=== PATIENT | male | born 1985 | race Two or more races ===

== ENCOUNTER 2017-01-21 17:45 | Emergency (ER) | payer BC ==
[~2017-01-21] VITALS: Ht 167.6 cm; Wt 79.4 kg
[2017-01-21] MEDS ORDERED: Bacitracin Oint UD TOPIC ONE (18:00)
[2017-01-21] MEDS ORDERED: Lidocaine 1% Plain 30 ml INJ ONE (18:00)
[2017-01-21] MEDS ORDERED: TdaP Vaccine 0.5ml Syr IM ONE (18:00)
[2017-01-21 18:45] VITALS: BP 138/87
[2017-01-21] MEDS ORDERED: IBUPROFEN600 MG ORAL (19:11)
[2017-01-21] MEDS ORDERED: BACITRACIN15 GM TOPIC (19:11)
[2017-01-21 19:18] VITALS: BP 138/87
--- NOTE | 2017-01-21 21:02 | Emergency Room Report ---
History of Present Illness General Chief Complaint: Laceration Source: Patient Present Illness [facility] The patient is a 31-year-old male presenting for laceration of the right hand. The patient states that he was at home fixing a pipe when his hand slipped and the end of the pipe cut his hand. He noticed immediate pain and bleeding. Pain is described as an 8/10 dull ache and does not radiate. It is worse with touch and hand movements. He denies numbness or tingling. He denies previous injury to this area. He denies any other symptoms Allergies: Coded Allergies: No Known Allergies (Unverified , 01/21/17) Patient History Past Medical History: see triage record Pertinent Family History: none Reviewed Nursing Documentation: PMH: Agreed, PSxH: Agreed Nursing Documentation-PMH Past Medical History: No Stated History Review of Systems All Other Systems: negative except mentioned in HPI Physical Exam Vital Signs Date Time Temp Pulse Resp B/P Pulse Ox O2 Delivery O2 Flow Rate FiO2 01/21/17 17:49 98.1 81 20 143/84 98 Room Air Sp02 EP Interpretation: reviewed, normal General Appearance: no apparent distress, alert, GCS 15, non-toxic Head: normocephalic, atraumatic Eyes: bilateral eye PERRL, bilateral eye normal inspection ENT: hearing grossly normal, normal pharynx, no angioedema, normal voice Musculoskeletal: back normal, gait/station normal, normal range of motion, tender - TTP over the R mid palmar surface over the laceration Neurologic: alert, oriented x3, responsive, motor strength/tone normal, sensory intact, normal gait, speech normal Psychiatric: judgement/insight normal, memory normal, mood/affect normal, no suicidal/homicidal ideation Skin: laceration - 4cm laceration to the palmar surface for proximal 3rd digit and 5cm laceration proximal to the MCPJ Lymphatic: no adenopathy Procedures Laceration/Wound Repair Laceration/Wound Repair : Consent: Verbal Wound Location: upper extremity Wound's Depth, Shape: superficial, irregular Wound Length (cm): 9 - total of 2 lacerations Wound Explored: clean Irrigated w/ Saline (ccs): 200 Betadine Prep?: Yes Anesthesia: 1% Lidocaine Volume Anesthetic (ccs): 9 Wound Debrided: minimal Wound Repaired With: sutures Suture Size/Type: 4:0, proline Number of Sutures: 12 Layer Closure?: No Sterile Dressing Applied?: Yes Splint Applied?: No Sling Applied?: No Patient Tolerated: Well Complications: None Medical Decision Making PA Attestation Dr. Galindo is my supervising physician. Patient management was discussed with my supervising physician Diagnostic Impression: Primary Impression: Hand laceration Qualified Codes: S61.411A - Laceration without foreign body of right hand, initial encounter ER Course The patient is a 31-year-old male presenting for laceration of the right hand. Ddx considered include but not limited to fracture, tendon/ligament injury, avulsion, nerve damage PE: vitals WNL Right hand: Full AROM. No active bleeding. There is a 5 cm irregular laceration to the palmar surface proximal to the MCP joint. There is a 4 cm laceration to the palmar surface of the third digit proximal to the PIP joint. Wound is irrigated with NS and betadine The wound was irrigated with normal saline and cleaned with betadine. A 27g needle was used to administer 9mL of lidocaine w.o epi for local anaesthesia. 12 sutures in total were placed with 4-0 prolene. The wound was well approximated and the patient tolerated the procedure well. The wound was then cleaned and bacitracin was applied. TDAP given. The patient will keep the wound clean and dry and is informed to followup with primary care. Laceration instructions given. ER precautions given Last Vital Signs Date Time Temp Pulse Resp B/P Pulse Ox O2 Delivery O2 Flow Rate FiO2 01/21/17 19:18 98.2 83 19 138/87 98 Room Air Status: improved Disposition: HOME, SELF-CARE Condition: Improved Scripts Bacitracin (Bacitracin) 28.4 Gm Oint...g. 1 APPLIC TOPIC THREE TIMES A DAY, #28 GM Prov: TERZIAN,NICOLA P.A. 01/21/17 Ibuprofen* (MOTRIN*) 600 Mg Tablet 600 MG ORAL Q8H Y for For Pain, #30 TAB 0 Refills Prov: TERZIAN,NICOLA P.A. 01/21/17 Patient Instructions: Laceration Care, Adult Additional Instructions: I discussed my findings with the patient. All questions and concerns have been answered. Treatment and medication compliance have been addressed. I advised the patient that they need to follow up with PMD in 7 days for wound check and suture removal. If you are unable to see PMD, return to the ED in 7 days. Return to ED if pain remains or worsens, you notice discharge from the wound, the wound continues to bleed, the suture/s fall out, you notice a fever or chills, or for any reason. Patient is advised to keep the wound clean and apply an antibacterial ointment. Patient verbalized understanding of discharge instructions. NICOLA STONE January 21, 2017 21:02
== END 2017-01-21 19:20 | disposition home or self-care (01) ==
LOC: EMR 18:35
DX: S61.411A Laceration without foreign body of right hand, initial encounter (principal); W26.8XXA Contact with other sharp object(s), not elsewhere classified, initial encounter; Y93.E9 Activity, other interior property and clothing maintenance; Y99.9 Unspecified external cause status
CPT/HCPCS: 12004; 90471; 90715; 96372; 99284; J2001

== ENCOUNTER 2017-01-30 15:30 | Emergency (ER) | payer BC ==
[~2017-01-30] VITALS: Ht 167.6 cm; Wt 86.2 kg
[~2017-01-30 15:30] MED LIST: BACITRACIN15 GM TOPIC; IBUPROFEN600 MG ORAL
--- NOTE | 2017-01-30 16:07 | Emergency Room Report ---
History of Present Illness General Chief Complaint: Wound Recheck/Suture Removal Source: Patient Present Illness HPI 31YOM here for suture removal. Sutures placed to palm of right hand and palmar aspect of 3rd finger on 01/21. Patient reports healing well, no fever/chills, no pus drainage. No numbness, tingling to hand. Feels well otherwise. Allergies: Coded Allergies: No Known Allergies (Unverified , 01/21/17) Patient History Past Medical History: none Past Surgical History: none Pertinent Family History: none Social History: Denies: alcohol use, drug use, smoking Immunizations: UTD Reviewed Nursing Documentation: PMH: Agreed, PSxH: Agreed Nursing Documentation-PMH Past Medical History: No Stated History Review of Systems All Other Systems: negative except mentioned in HPI Physical Exam Vital Signs Date Time Temp Pulse Resp B/P Pulse Ox O2 Delivery O2 Flow Rate FiO2 01/30/17 15:37 98.8 70 16 126/79 99 Room Air Sp02 EP Interpretation: reviewed, normal General Appearance: normal inspection, well appearing, no apparent distress, alert Head: atraumatic ENT: normal ENT inspection, hearing grossly normal, normal voice Neck: normal inspection, full range of motion, supple, no bony tend Respiratory: normal inspection, lungs clear, normal breath sounds, no respiratory distress, no retraction, no wheezing Cardiovascular #1: regular rate, rhythm, no edema Gastrointestinal: normal inspection, normal bowel sounds, non tender, soft, no guarding, no hernia Genitourinary: no CVA tenderness Musculoskeletal: normal inspection, back normal, normal range of motion, Rajni' s Sign negative Neurologic: normal inspection, alert, oriented x3, responsive, hand i cutter III-XII nml as tested, motor strength/tone normal, speech normal Psychiatric: normal inspection, judgement/insight normal, mood/affect normal Skin: other - Right hand: palmar aspect. Very dirty hand. 13 blue proline sutures noted. Healing well. Palmar aspect somewhat loose superficially. Nontender. No infection Procedures Laceration/Wound Repair Laceration/Wound Repair : Consent: Verbal Wound Location: upper extremity Wound's Depth, Shape: superficial Wound Explored: clean Betadine Prep?: Yes Wound Debrided: minimal Wound Repaired With: Steri-strips Number of Sutures: 3 Layer Closure?: No Sterile Dressing Applied?: Yes Splint Applied?: No Sling Applied?: No Patient Tolerated: Well Complications: None Medical Decision Making Diagnostic Impression: Primary Impression: Encounter for removal of sutures ER Course 31YOM for suture removal VSS. Afebrile No cellulitis Sutures removed Steri strips applied to area of palmar area and re-bandaged DC home Last Vital Signs Date Time Temp Pulse Resp B/P Pulse Ox O2 Delivery O2 Flow Rate FiO2 01/30/17 15:37 98.8 70 16 126/79 99 Room Air Status: improved Disposition: HOME, SELF-CARE Referrals: [facility],REFERRING (PCP) POOJA LUIS M.D. Jan 30, 2017 16:07
[2017-01-30 16:15] VITALS: BP 126/79
[2017-01-30 16:21] VITALS: BP 126/79
== END 2017-01-30 16:21 | disposition home or self-care (01) ==
LOC: EMR 15:40
DX: S61.411D Laceration without foreign body of right hand, subsequent encounter (principal); Z48.02 Encounter for removal of sutures
CPT/HCPCS: 99281

== ENCOUNTER 2017-05-26 08:56 | Emergency (ER) | payer BC, OTHER ==
[~2017-05-26] VITALS: Ht 170.2 cm; Wt 81.6 kg
[2017-05-26 09:08] VITALS: BP 132/75
[2017-05-26] MEDS ORDERED: IBUPROFEN600 MG ORAL (09:35)
[2017-05-26] MEDS ORDERED: Ketorolac 60mg Inj IM ONE (09:45)
[2017-05-26 09:48] VITALS: BP 132/75
--- NOTE | 2017-05-26 09:48 | Emergency Room Report ---
History of Present Illness General Chief Complaint: Pain Source: Patient Present Illness HPI Patient 32-year-old male who presented after increased left knee pain. Patient had sudden onset of symptoms or one day. Patient reported having prior history of psoriasis. Patient stated that he had increased pain. Patient any fever. He denied recent trauma. The patient stated that he had been having increased pain to his knee. This did not radiate. The patient denied any crepitance or prior surgical changes Allergies: Coded Allergies: No Known Allergies (Unverified , 01/21/17) Patient History Past Medical History: see triage record Reviewed Nursing Documentation: PMH: Agreed, PSxH: Agreed Nursing Documentation-PMH Past Medical History: No Stated History Review of Systems All Other Systems: negative except mentioned in HPI Physical Exam Vital Signs Date Time Temp Pulse Resp B/P (MAP) Pulse Ox O2 Delivery O2 Flow Rate FiO2 05/26/17 09:08 99.0 74 16 132/75 97 Room Air Sp02 EP Interpretation: reviewed, normal General Appearance: normal inspection, well appearing, no apparent distress, alert, GCS 15 Head: atraumatic ENT: normal ENT inspection, hearing grossly normal, normal voice Neck: normal inspection, full range of motion, supple, no bony tend Respiratory: normal inspection, lungs clear, normal breath sounds, no respiratory distress, no retraction, no wheezing Cardiovascular #1: regular rate, rhythm, no edema Gastrointestinal: normal inspection, normal bowel sounds, non tender, soft, no guarding, no hernia Genitourinary: no CVA tenderness Musculoskeletal: normal inspection, back normal, normal range of motion, other - prepatellar swelling no fluctuance or erythema, no ligamentous laxity Neurologic: normal inspection, alert, responsive, speech normal Psychiatric: normal inspection, judgement/insight normal, mood/affect normal Skin: normal inspection, normal color, no rash Medical Decision Making Diagnostic Impression: Primary Impression: Bursitis ER Course Patient presented for knee pain. Differential diagnosis included was not limited to popliteal aneurysm, arthritis, dislocation, ligamentous injury, septic joint among others. Patient's benign exam and does not appear to require any further imaging or laboratory testing at this time. The patient appears to have a prepatellar bursitis. Patient was given IM Toradol for pain The patient is advised to follow up with primary care doctor in 1-2 days. Patient is advised to return if any worsening condition or if any changes in status that are concerning. Last Vital Signs Date Time Temp Pulse Resp B/P (MAP) Pulse Ox O2 Delivery O2 Flow Rate FiO2 05/26/17 09:08 99.0 74 16 132/75 97 Room Air Status: improved Disposition: HOME, SELF-CARE Condition: Stable Scripts Ibuprofen* (MOTRIN*) 600 Mg Tablet 600 MG ORAL Q8H Y for For Pain, #30 TAB 0 Refills Prov: Hernesto Arteaga 05/26/17 Patient Instructions: Bursitis Hernesto Arteaga May 26, 2017 09:48
== END 2017-05-26 09:48 | disposition home or self-care (01) ==
LOC: EMR 09:33
DX: M71.9 Bursopathy, unspecified (principal); L40.9 Psoriasis, unspecified
CPT/HCPCS: 96372; 99283